=== PATIENT | male | born 2000 | race Caucasian/White ===

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

== ENCOUNTER 2019-04-25 21:00 | Emergency (ER) | payer SELFPAY, OTHER | END 2019-04-25 22:09 | disposition home or self-care (01) | LOC: ER 21:00 ==

== ENCOUNTER 2022-05-18 18:55 | Emergency (ER) | payer SELFPAY ==
[~2022-05-18] VITALS: Ht 175.2 cm; Wt 72.8 kg
[2022-05-18] MEDS ORDERED: TETANUS,DIPTH,PERTUSS P/F (BOOSTRIX) 0.5 ML VIAL IM ONE (19:15)
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
[2022-05-18 19:50] VITALS: BP 138/83
== END 2022-05-18 19:50 | disposition home or self-care (01) ==
LOC: EDUNIT# 18:55 → ER 18:56
DX: S09.90XA Unspecified injury of head, initial encounter (principal); S01.01XA Laceration without foreign body of scalp, initial encounter; F17.210 Nicotine dependence, cigarettes, uncomplicated; Z23 Encounter for immunization; W20.8XXA Other cause of strike by thrown, projected or falling object, initial encounter
CPT/HCPCS: 70450; 90715